=== PATIENT | female | born 2000 | race Caucasian/White ===

== ENCOUNTER 2018-03-29 08:05 | Outpatient (CLI) | payer BC ==
[~2018-03-29] VITALS: Ht 160 cm; Wt 85.0 kg
[2018-03-29] MEDS ORDERED: PREN-93 PO (08:28)
[2018-03-29 08:29] VITALS: BP 121/58; PULSE 102; RESP 18
[2018-03-29 08:30] VITALS: Ht 160 cm; Wt 85.0 kg
--- NOTE | 2018-03-29 10:26 | TRIAGE ---
OB Triage Datetime Report Generated by CPN: 03/29/2018 10:25 Datetime: 03/29/2018 09:35 Vaginal Exam Dilatation (cms): 0.0 Station: -3 Exam By: KHEMANI Datetime: 03/29/2018 09:30 Stage of : OB Triage Maternal Assessment Level of Consciousness: Fully Conscious Labor Evaluation Frequency: 2-5 Monitor Mode: External Duration (sec)2399: 40-120 Quality: Mild Resting Tone Kerman: Relaxed Heart Rate FHR Baseline Rate: 135 Monitor Mode: External US Variability: Moderate 6-25 bpm Accelerations: 15X15 Decelerations: None Category: Category I Pain Assessment Pain Scale: 0 Pain Goal: 3 Membrane Status: Intact Vaginal Bleeding: None Datetime: 03/29/2018 08:32 EGA: 40.1 Datetime: 03/29/2018 08:22 Assessment Type: Triage Maternal Assessment Level of Consciousness: Fully Conscious DTR's/Clonus: DTRs 2+; No Clonus Headache: Denies Blurred Vision: No Respiratory Effort: Unlabored; Regular Rhythm; Equal Expansion Breath Sounds, Left: Clear and Equal Breath Sounds, Right: Clear and Equal Nausea/Vomiting: Denies RUQ Epigastric Pain: Denies Lower Extremities Edema: Bilateral Lower Extremities Degree: 1+ Upper Extremities Edema: None Degree: None Facial Edema: None Fall Risk Assessment History of Falling: (0) No Secondary Diagnosis: (0) No Ambulatory Aid: (0) Bedrest/Nurse Assist IV Therapy: (0) No Gait: (0) Normal/Bedrest/Immobile Mental Status: (0) Oriented to Own Ability Fall Score: 0 Fall Risk Score Definition: No Risk: No action required Datetime: 03/29/2018 08:21 Time of Arrival: 03/29/2018 08:02 Arrived By: Ambulatory Arrived From: Home Chief Complaint: PT. HERE FOR NST/BPP/EFW FOR POST DATES Movement: Present Contractions: Denies/Absent Rupture of Membranes: Denies Vaginal Bleeding: None Vaginal Discharge: Denies Recent Sexual Intercouse: Denies Abdominal Trauma: Not Applicable Patient Complaints: None Time Provider Notified: 03/29/2018 09:57 Provider Notified: ESHAGHIAN Initial Plan: BPP/EFW Datetime: 03/29/2018 08:19 Monitor Mode: External Monitor Mode: External US
--- NOTE | 2018-03-29 12:08 | PN ---
Triage Information Date/Time Note for exam done for March 29, 2018 Reason for visit: Weeks of Gestation 40 weeks and 1 day /Para 1 para 0 Diabetes: none Hypertention: none Additional information 18-year-old with IUP at 40 weeks and 1 day here today for rule out labor. She denies any leaking of fluid, decreased movement or vaginal bleeding. She was feeling some contractions that resolved. Desires to proceed with expectant management with induction at 40 weeks and 6 days Objective Vital Signs Date Temp Pulse Resp B/P (MAP) Pulse Ox O2 O2 Flow FiO2 Time Delivery Rate 03/29/18 98.3 102 18 121/58 96 Room Air 08:29 (79) Heart Rate: 130's Heart Rate Comments Category 1 tracing Contractions: >10 Minutes Apart Exam Appearance: Alert and oriented x4 does not appear to be in any acute distress Abdomen: Soft, gravid, fundal height consider gestational age NST: Category 1 BPP: 88 Estimated weight: 30 percentile Vaginal exam: 0 nonfavorable cervix/ 10/-2 Results/Medications Imaging Results PROCEDURE: US OB biophysical profile. CLINICAL INDICATION: decreased movements, post dates TECHNIQUE: Multiple sonographic images of the pelvis were obtained. The images were reviewed on a PACS workstation. COMPARISON: No prior studies are available for comparison. FINDINGS: There is a single live intrauterine gestation. Cardiac activity is present with 142 beats per minute. There is a vertex presentation. The placenta is anterior. There is no evidence of placental abruption. There is a normal amount of amniotic fluid with an STEFAN = 16.1 cm. Biophysical profile: movement 2/2 tone 2/2. breathing 2/2 STEFAN 2/2 Total 09/20 RPTAT: AA . IMPRESSION: Normal biophysical profile. Disposition: Discharge Assessment/Plan IUP at 40 weeks and 1 day Postdates False labor pain. Patient had been observed no cervical change noted during observation testing reassuring No favorable cervix Options including induction versus expectant management and induction at 40 week s and 6 days discussed with the patient Desires to proceed with expectant management Strict labor precautions kick count and follow-up in 2 days in triage for NST/review we discussed with the patient Patient verbalized understanding. All questions were answered to patient's best satisfaction RIVERA SHAIKH MD Mar 29, 2018 12:08
== END 2018-03-29 10:20 | disposition home or self-care (01) ==
LOC: OBT 08:05 → L-D 08:05 → OBT 10:20
PROVIDERS: ATTEND Obstetrics & Gynecology
DX: O48.0 Post-term pregnancy (principal); Z3A.40 40 weeks gestation of pregnancy
CPT/HCPCS: 76815; 76818; Z7500; G0463

== ENCOUNTER 2018-03-30 19:36 | Inpatient (IN) | payer BC ==
[~2018-03-30] VITALS: Ht 160 cm; Wt 85.9 kg
[~2018-03-30 19:36] MED LIST: PREN-93 PO
[2018-03-30] MEDS ORDERED: LACTATED RINGER'S 1,000 ML IV PRN (23:55)
[2018-03-31] MEDS ORDERED: CARBOPROST 250 MCG INJ IM PRN
[2018-03-31] MEDS ORDERED: MISOPROSTOL 200 MCG TAB PR PRN
[2018-03-31] MEDS ORDERED: OXYTOCIN 30 UNITS/LR 500 ML IV PRN
[2018-03-31] MEDS ORDERED: OXYTOCIN 30 UNITS/LR 500 ML IV SCH ×2
[2018-03-31] MEDS ORDERED: METHYLERGONOVINE 0.2 MG INJ IM PRN
[2018-03-31] MEDS ORDERED: IBUPROFEN 600 MG TAB PO PRN
[2018-03-31] MEDS ORDERED: BUTORPHANOL 2 MG INJ IV PRN
[2018-03-31] MEDS ORDERED: LIDOCAINE 1% (MPF) 30 ML INJ INJ PRN
[2018-03-31 00:01] VITALS: Ht 160 cm; Wt 85.9 kg
[2018-03-31] MEDS: LACTATED RINGER'S 1,000 ML IV SCH ×4 (01:07→23:41)
[2018-03-31] MEDS: MISOPROSTOL 50 MCG CAPSULE PO PRN ×3 (06:41→22:22)
--- NOTE | 2018-03-31 09:12 | HP ---
Date/Time of Note Date/Time of Note DATE: 03/31/18 TIME: 09:08 OB - History Hx of Present Free Text/Dictation 18 years old 1 with single intrauterine at 40 weeks and 2 days with a PHILLIP of 03/28/2018 complaining of possible leakage of fluid and uterine contractions. She states good movement. She denies nausea, vomiting, shortness of breath, chest pain, headache, visual changes, vaginal bleeding Chief Complaint: Possible leakage of fluid and a uterine contractions Estimated Due Date: Mar 28, 2018 : 1 Care: Good Care Ultrasounds: Normal mid trimester US Obstetrical Complications: None Medical Complications: None Past Family/Social History * Past Medical, Surgical, Family and Obstetric Histories reviewed from chart. Blood Type: O+ Rubella: immune RPR/VDRL: Negative GBS Status: Negative HBsAG: Negative OB Admission Exam Vital Signs Vital Signs Blood pressure 115/69, pulse rate 70/minutes, respiratory rate 16/minutes, temperature 98.6 Physical Exam HEENT: WNL Heart: Rhythm Normal Lungs: Clear Abdomen: WNL Extremities: Normal Cervical Dilatation: 1cm Effacement: 25% Station: -3 Membranes: Intact Heart Rate: 130's Decelerations: No Decelerations Varibility: Moderate Contractions on Admission: 6-10 Minutes Apart Intensity: Mild Last 72 hours Lab Results CBC & BMP 03/31/18 00:48 OB Assessment/Plan Other plan: 18 years old 1 with single intrauterine at 40 weeks and 2 days complaining of uterine contraction and possible leakage of fluid. Vaginal exam performed, no leakage of fluid or gush of fluid seen. Nitrazine and ROM plus was negative. Initially in triage there was few viable deceleration which r esolved later, she was admitted for induction of labor. - FHR: No sign of metabolic acidosis- Category I - Continuous EFM, toco - CBC, blood type and screen - Analgesia options with R/B/A discussed in detail with patient - Epidural per patient request - Please see the orders - O+/Rubella: Immune - GBS: negative Admission, procedures, expectations, risks and possible complications have been discussed in detail with the patient. Risk of vaginal delivery including but not limited to bleeding, infection, cervical laceration, placental retention, injury to fetus, blood transfusion, blood transfusion related infection, risk of anesthesia, adhesion, cervical laceration, episiotomy/laceration, possible delivery with risk of bleeding, infection, injury to other organs (bowel, bladder, ureter, vessels, nerves), injury to fetus, blood transfusion, blood transfusion related infection, risk of anesthesia, scar and hernia formation, needs for future , removal of uterus or any other indicated surgery discussed with the patient. She expressed understanding and repeats the risks. All of her questions were answered. She signed the informed consent. PHYSICIAN'S VERIFICATION OF INFORMED CONSENT The patient was counseled regarding the procedure, its indications, risks, potential complications and alternatives and any questions were answered. Consent was obtained. PLANNED PROCEDURE/TREATMENT: Vaginal delivery, episiotomy, repair of laceration possible delivery LYNN NEVILLE Mar 31, 2018 09:12
[2018-04-01] MEDS: MISOPROSTOL 50 MCG CAPSULE PO PRN ×2 (02:29→06:34)
[2018-04-01] MEDS: LACTATED RINGER'S 1,000 ML IV SCH ×3 (07:12→23:21)
[2018-04-01 08:53] VITALS: BP 120/62; PULSE 50; RESP 20
[2018-04-01] MEDS ORDERED: OXYTOCIN 30 UNITS/LR 500 ML IV SCH (11:00)
--- NOTE | 2018-04-01 20:35 | QN ---
Documentation Comment patient see and evaluated no complaints vs stable afebrile abd gravid, nt extremity plus 2 b/l edema no calf tenderness ve 1-2/70/-2 intact fhr cat 1 toco regular a/ iup at 40 plus weeks ga, admitted for post edc induction currently on pitocin p/ continue present management r/b/a explained GRACIA JONES MD Apr 01, 2018 20:35
[2018-04-02] MEDS: LACTATED RINGER'S 1,000 ML IV SCH ×4 (00:24→23:11)
--- NOTE | 2018-04-02 00:34 | PREAC ---
Date/Time of Note Date/Time of Note DATE: 04/02/18 TIME: 00:33 Anesthesia Eval and Record Evaluation Time Pre-Procedure Interview DATE: 04/02/18 TIME: 00:33 Age 18 Sex female NPO: 8 hrs Preoperative diagnosis labor pain Planned procedure epidural Past Medical History Past Medical History: None Surgery & Anesthesia Issues No known issue Meds Anticoagulation: No Beta Hussain within 24 hr: No Reason Beta Hussain not given: Pt. not on B-Hussain Reported Medications Vit No.124/Iron/FA ( Vitamin Tablet) 1 Each Tablet, 1 EACH PO DAILY, TAB 03/29/18 Current Medications Butorphanol Tartrate (Stadol) 2 mg Q2H PRN IV .PAIN; Start 03/31/18 at 00:00 Lidocaine (Xylocaine 1% (Mpf)) 30 ml ONCE PRN INJ .EPISIOTOMY; Start 03/31/18 at 00:00 Oxytocin/Lactated Ringer's 500 ml @ 500 mls/hr ONCE POST IV ; Start 03/31/18 at 00:00 Oxytocin/Lactated Ringer's 500 ml @ 125 mls/hr POST IV ; Start 03/31/18 at 00:00 Ibuprofen (Motrin) 600 mg ONCE PRN PO .PAIN 1-5; Start 03/31/18 at 00:00 Lactated Ringer's 1,000 ml @ 2,000 mls/hr Q30M PRN IV .ANESTHESIA Last administered on 03/31/18at 00:47; Admin Dose 2,000 MLS/HR; Start 03/30/18 at 23:55 Oxytocin/Lactated Ringer's 500 ml @ 0 mls/hr ONCE PRN IV .VAGINAL BLEEDING; Start 03/31/18 at 00:00 Methylergonovine Maleate (Methergine) 0.2 mg ONCE PRN IM .VAGINAL BLEEDING; Start 03/31/18 at 00:00 Carboprost Tromethamine (Hemabate) 250 mcg ONCE PRN IM .VAGINAL BLEEDING; Start 03/31/18 at 00:00 Misoprostol (Cytotec) 1,000 mcg ONCE PRN VA .VAGINAL BLEEDING; Start 03/31/18 at 00:00 Lactated Ringer's 1,000 ml @ 125 mls/hr Q8H IV Last administered on 04/02/18at 00:24; Admin Dose 125 MLS/HR; Start 03/31/18 at 00:48 Oxytocin/Lactated Ringer's 500 ml @ 0 mls/hr Q0M IV Last administered on 04/01/18at 11:20; Admin Dose 1 MLS/HR; Start 04/01/18 at 11:00 Meds reviewed: Yes Allergies Coded Allergies: No Known Allergy (Unverified , 03/29/18) Allergies Reviewed: Yes Labs/Studies Labs Reviewed: Reviewed by anesthesiologist Result Diagram: 03/31/18 0048 test: Positive Studies: ECG (n/a) Pre-procedure Exam Last vitals Vital Signs Date Temp Pulse Resp B/P (MAP) Pulse Ox O2 O2 Flow FiO2 Time Delivery Rate 04/01/18 97.8 50 20 120/62 Room Air 08:53 (81) Airway: Adequate mouth opening Mallampati: Mallampati I Teeth: Normal Lung: Normal Heart: Normal ASA Physical Status ASA physical status: 2 Emergency: None Planned Anesthetic Neuraxial: Epidural Pre-operative Attestations Prior to commencing anesthesia and surgery, the patient was re-evaluated, there was verification of: *The patient's identity *The results of appropriate recent lab work and preoperative vital signs *The above evaluation not changing prior to induction *Anesthetic plan, risk benefits, alternative and complications discussed with patient/family; questions answered; patient/family understands, accepts and wishes to proceed. AMMON WALKER MD Apr 02, 2018 00:34
[2018-04-02] MEDS ORDERED: ONDANSETRON 4 MG INJ IV PRN (01:00)
[2018-04-02] MEDS ORDERED: NALOXONE (0.4 MG/ML) INJ IV PRN (01:00)
--- NOTE | 2018-04-02 08:10 | PAC ---
Date/Time of Note Date/Time of Note DATE: 04/02/18 TIME: 08:08 Post-Anesthesia Notes Post-Anesthesia Note Last documented vital signs Vital Signs Date Temp Pulse Resp B/P (MAP) Pulse Ox O2 O2 Flow FiO2 Time Delivery Rate 04/01/18 97.8 50 20 120/62 97 Room Air 08:53 (81) 08:09 Bp 114/65 HR 89 , RR 18, Temp 97.9, Sat 97 % Activity: WNL Respiratory function: WNL Cardiovascular function: WNL Mental status: Baseline Pain reasonably controlled: Yes Hydration appropriate: Yes Nausea/Vomiting absent: No AMMON WALKER MD Apr 02, 2018 08:10
[2018-04-02] MEDS: FENTAnyl 2MCG/ML-ROPIV 0.2% 100 ML BAG EPI SCH ×3 (09:13→23:06)
[2018-04-02] MEDS ORDERED: AMPICILLIN 2 GM/NS (PMX) 100 ML IV ONE (22:00)
[2018-04-03] MEDS ORDERED: AMPICILLIN 1 GM/NS (PMX) 50 ML IV SCH (02:00)
--- NOTE | 2018-04-03 02:57 | LDN ---
Date/Time of Note Date/Time of Note DATE: 04/03/18 TIME: 02:55 Delivery Summary Weeks of Gestation 40 Placenta Delivered: Spontaneously Meconium: Thick Episiotomy: Yes Indication for episiotomy vaginal edema Laceration repair: rmle repair with 2-0 and 3-0 chromic Anesthesia type: Epidural Estimated blood loss: 200 Sponge & Needle done & correct: Yes All needle counts correct: Yes Any foreign bodies felt in the: No Infant Delivery Information Sex Infant Sex: male Apgars 1 Minute: 6 5 Minute: 9 Suctioning Nose & mouth suctioned at tanvir: No Delee suction performed: No Umbilical Cord Umbilical cord with: 3 Vessels Cord presentations: nuchal cord (reducible) Nuchal cord present X: 1 Cord Blood was obtained: Yes Mother & Baby Disposition Disposition Baby to NICU: Yes GRACIA JONES MD Apr 03, 2018 02:57
[2018-04-03] MEDS ORDERED: OXYTOCIN 30 UNITS/LR 500 ML IV SCH (02:58)
[2018-04-03] MEDS ORDERED: ACETAMINOPHEN 325 MG TAB PO PRN (03:00)
[2018-04-03] MEDS ORDERED: LANOLIN HPA 1 PKT TOP PRN (03:00)
[2018-04-03] MEDS ORDERED: OXYCODONE/ASPIRIN (4.88/325) TAB PO PRN ×2 (03:00)
[2018-04-03] MEDS ORDERED: NACL 0.9% 3 ML SYG IV SCH (03:00)
[2018-04-03] MEDS ORDERED: CARBOPROST 250 MCG INJ IM PRN (03:00)
[2018-04-03] MEDS ORDERED: METHYLERGONOVINE 0.2 MG INJ IM PRN (03:00)
[2018-04-03] MEDS ORDERED: BENZOCAINE 20% 56 ML SPRAY TOP PRN (03:00)
[2018-04-03] MEDS ORDERED: DIBUCAINE 1% 30 GM OINT TOP PRN (03:00)
[2018-04-03] MEDS ORDERED: ONDANSETRON 4 MG INJ IV PRN (03:00)
[2018-04-03] MEDS ORDERED: MISOPROSTOL 200 MCG TAB PR PRN (03:00)
[2018-04-03] MEDS ORDERED: OXYTOCIN 30 UNITS/LR 500 ML IV PRN (03:00)
[2018-04-03] MEDS ORDERED: WITCH HAZEL/GLYCERIN PAD PR PRN (03:00)
[2018-04-03] MEDS ORDERED: MAGNESIUM HYDROXIDE 30ML CUP PO PRN (03:00)
[2018-04-03 04:30] VITALS: BP 132/83; PULSE 74; RESP 18
[2018-04-03 05:30] VITALS: BP 134/77; PULSE 99; RESP 19
[2018-04-03] MEDS: IBUPROFEN 600 MG TAB PO SCH ×3 (05:45→18:30)
[2018-04-03] MEDS ORDERED: METHYLERGONOVINE 0.2 MG INJ ONE (07:00)
[2018-04-03 08:00] VITALS: BP 128/79; PULSE 89; RESP 16
[2018-04-03] MEDS: SENNA/DOCUSATE NA (8.6MG/50MG) TAB PO SCH ×2 (09:16→21:00)
[2018-04-03 12:39] VITALS: BP 126/65; PULSE 88; RESP 18
[2018-04-03 16:00] VITALS: BP 127/62; PULSE 84; RESP 14
[2018-04-03 20:30] VITALS: BP 134/80; PULSE 89; RESP 18
[2018-04-04 00:30] VITALS: BP 124/81; PULSE 91; RESP 18
[2018-04-04 03:30] VITALS: BP 99/56; PULSE 77; RESP 18
--- NOTE | 2018-04-04 03:56 | PD.PPDC ---
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
--- NOTE | 2018-04-04 03:58 | DS ---
Date/Time of Note Date/Time of Note DATE: 04/04/18 TIME: 03:57 Obstetrical Discharge Record Final Diagnosis Final Diagnosis: Term delivered Vaginal Delivery Obstetrical Delivery: Spontaneous, Episiotomy, Repaired Condition on Discharge Physical Assessment Last Vitals: stable afebrile Voiding: Yes Bowel Movement: Yes Breast: Soft, non-tender, Filling Fundus: Firm Abdomen and Incision: soft nt Episiotomy: intact Calf Tenderness: No Patient Condition: GRACIA Arredondo MD Apr 04, 2018 03:58
[2018-04-04] MEDS: IBUPROFEN 600 MG TAB PO SCH ×5 (06:00→23:28)
[2018-04-04 08:50] VITALS: BP 121/71; PULSE 75; RESP 14
[2018-04-04] MEDS: SENNA/DOCUSATE NA (8.6MG/50MG) TAB PO SCH ×2 (09:43→21:00)
[2018-04-04 16:23] VITALS: BP 138/75; PULSE 90; RESP 18
[2018-04-04 20:20] VITALS: BP 131/76; PULSE 90; RESP 18
[2018-04-05 04:00] VITALS: BP 130/74; PULSE 84; RESP 18
[2018-04-05] MEDS: IBUPROFEN 600 MG TAB PO SCH ×2 (06:04→12:19)
[2018-04-05 08:00] VITALS: BP 122/80; PULSE 74; RESP 18
[2018-04-05] MEDS: SENNA/DOCUSATE NA (8.6MG/50MG) TAB PO SCH (09:17)
[2018-04-05] MEDS ORDERED: INFLUENZA VIRUS VACCINE 0.5 ML (DISPENSING) IM* ONE (10:00)
== END 2018-04-05 13:16 | disposition home or self-care (01) | DRG 807 ==
LOC: L-D 19:36 → OBT 19:36 → L-D 20:25 → OBT 23:50 → L-D 23:50 → PP1 04-03 04:30
PROVIDERS: ADMIT Obstetrics & Gynecology; ATTEND Obstetrics & Gynecology
PROC: 10E0XZZ Delivery of Products of Conception, External Approach (ICD-10-PCS; principal; 2018-04-02)
PROC: 0HQ9XZZ Repair Perineum Skin, External Approach (ICD-10-PCS; 2018-04-02)
PROC: 3E033VJ Introduction of Other Hormone into Peripheral Vein, Percutaneous Approach (ICD-10-PCS; 2018-04-02)
DX: O48.0 Post-term pregnancy (principal); Z37.0 Single live birth; Z3A.40 40 weeks gestation of pregnancy; O69.81X0 Labor and delivery complicated by cord around neck, without compression, not applicable or unspecified; O70.0 First degree perineal laceration during delivery
CPT/HCPCS: 62319; 84112; 85025; 85610; 85730; 86592; 86850; 86900; 86901; 90686; 99464; G0463; J0290; J2210; J2405; J2590; J3010; J7120